=== PATIENT | male | born 1945 | race Caucasian/White ===

== ENCOUNTER 2018-10-07 16:07 | Emergency (ER) | payer OTHER ==
--- NOTE | 2018-10-07 16:26 | ED Physician Documentation ---
PD HPI SKIN - Stated complaint Stated Complaint: RASH - Chief complaint Chief Complaint: Wound - History obtained from History obtained from: Patient PD PAST MEDICAL HISTORY - Allergies Allergies/Adverse Reactions: Allergies Allergy/AdvReac Type Severity Reaction Status Date / Time No Known Drug Allergies Allergy Verified 10/07/18 16:14 Results - Vitals Vitals: Vital Signs - 24 hr 10/07/18 16:11 Temperature 36.0 C L Heart Rate 151 H Respiratory 18 Rate Blood Pressure 118/89 H O2 Saturation 100 Oxygen O2 Source Room air
--- NOTE | 2018-10-07 17:27 | ED Physician Documentation ---
PD HPI SKIN - Stated complaint Stated Complaint: RASH - Chief complaint Chief Complaint: Wound - History obtained from History obtained from: Patient, Family - History of Present Illness Timing - onset: Other (73-year-old gentleman with recent perforated diverticulitis status post lap or scopic surgery with midline IV in place getting IV antibiotics, also history of CLL presents with a slightly painful rash to the left abdominal wall. No fevers.) Review of Systems Constitutional: denies: Fever, Chills Nose: reports: Reviewed and negative Cardiac: reports: Reviewed and negative Respiratory: reports: Reviewed and negative GI: denies: Abdominal Pain, Nausea, Vomiting, Diarrhea PD PAST MEDICAL HISTORY - Past Medical History Past Medical History: Yes Other Past Medical History: diverticulitis, perforated bowel, denies other - Past Surgical History Past Surgical History: Yes - Present Medications Home Medications: Ambulatory Orders Medication Instructions Recorded Confirmed Valacyclovir HCl [Valtrex] 1,000 mg PO TID #30 tablet 10/07/18 - Allergies Allergies/Adverse Reactions: Allergies Allergy/AdvReac Type Severity Reaction Status Date / Time No Known Drug Allergies Allergy Verified 10/07/18 16:14 - Social History Does the pt smoke?: No Smoking Status: Never smoker Does the pt drink ETOH?: No Does the pt have substance abuse?: No - Immunizations Immunizations are current?: Yes PD ED PE NORMAL - Vitals Vital signs reviewed: Yes (Tachycardic) - General General: Alert and oriented X 3, No acute distress - Cardiac Cardiac: No murmur (Tachycardic, regular) - Abdomen Abdomen: Normal bowel sounds, Soft, Non tender, Other (PANCHO drain right mid abdomen, a lot of pelvic bruising. He has shingles to the left abdominal wall.) - Back Back: No CVA TTP, No spinal TTP - Neuro Neuro: Alert and oriented X 3, Normal speech - Psych Psych: Normal mood, Normal affect Results - Vitals Vitals: Vital Signs - 24 hr 10/07/18 10/07/18 10/07/18 16:11 16:39 16:41 Temperature 36.0 C L Heart Rate 151 H 124 H 133 H Respiratory 18 16 16 Rate Blood Pressure 118/89 H 132/97 H O2 Saturation 100 98 98 10/07/18 10/07/18 10/07/18 17:14 17:28 17:47 Temperature Heart Rate 137 H 138 H 141 H Respiratory 16 16 16 Rate Blood Pressure 138/104 H 154/108 H O2 Saturation 98 98 97 10/07/18 10/07/18 10/07/18 17:55 18:00 18:07 Temperature Heart Rate 139 H 139 H 130 H Respiratory 16 16 16 Rate Blood Pressure 140/110 H 146/111 H 130/106 H O2 Saturation 96 96 97 10/07/18 10/07/18 10/07/18 18:11 18:30 18:35 Temperature Heart Rate 128 H 132 H 121 H Respiratory 16 16 16 Rate Blood Pressure 133/103 H 139/104 H 118/88 H O2 Saturation 97 96 97 10/07/18 10/07/18 10/07/18 18:52 18:56 18:59 Temperature Heart Rate 123 H 71 66 Respiratory 16 16 16 Rate Blood Pressure 134/99 H 120/76 133/84 H O2 Saturation 95 95 95 Oxygen O2 Source Room air - EKG (time done) 1732 Rate: Rate (enter#) (135) Rhythm: Other (narrow complex tachy, prob junctional) QRS: Normal Ischemia: Non specific changes (mild lat STD). No: ST elevation c/w ischemia 1857 Rate: Rate (enter#) (65) Rhythm: NSR [place]: Normal Intervals: Normal [place] QRS: Normal Ischemia: Normal ST segments Computer interpretation: Agree with computer - Labs Labs: Laboratory Tests 10/07/18 10/07/18 10/07/18 17:45 17:45 17:45 WBC 49.2 H* RBC 4.68 L Hgb 15.7 Hct 49.0 MCV 104.7 H MCH 33.5 H MCHC 32.0 RDW 15.4 H Plt Count 198 MPV 9.2 Neut # (Auto) Not Reportable Lymph # (Auto) Not Reportable Nicholas # (Auto) Not Reportable Eos # (Auto) Not Reportable Baso # (Auto) Not Reportable Absolute Nucleated RBC Not Reportable Total Counted 100 Band Neuts % (Manual) 0 Abnorm Lymph % (Manual) 0 Nucleated RBC % Not Reportable Neutrophils # (Manual) 3.9 Lymphocytes # (Manual) 44.3 H Monocytes # (Manual) 0.0 Eosinophils # (Manual) 1.0 H Basophils # (Manual) 0.0 Differential Comment MANUAL DIFFERENTIAL Manual Slide Review Indicated WBC Morphology NORMAL APPEARANCE Platelet Estimate NORMAL (130-450,000) Platelet Morphology NORMAL APPEARANCE RBC Morph Micro Appear 2+ MACROCYTOSIS Sodium 141 Potassium 3.6 Chloride 101 Carbon Dioxide 26 Anion Gap 14.0 H BUN 14 Creatinine 1.0 Estimated GFR (MDRD) 73 L Glucose 112 H Lactic Acid 1.1 Calcium 9.2 Total Bilirubin 1.0 AST 50 H ALT 36 Alkaline Phosphatase 42 Total Protein 6.8 Albumin 3.6 Globulin 3.2 Albumin/Globulin Ratio 1.1 Lipase 45 PD MEDICAL DECISION MAKING - ED course ED course: 73-year-old gentleman presents with shingles with a complicated recent medical history as above. Steroids were held given the CLL is at is also noted to be tachycardic, on EKG this is a narrow complex tachycardia without P waves consistent with a junctional tachycardia. Adenosine 6 mg IV push was trialed without conversion, this was followed by metoprolol 5 mg IV. This was also ineffective but divided doses of diltiazem were curative from that perspective. Of note he says his baseline white count is in the 40s with his CLL. Departure - Departure Disposition: 01 Home, Self Care Clinical Impression: Junctional tachycardia, CLL (chronic lymphocytic leukemia) Shingles Qualifiers: Herpes zoster complications: without complications Qualified Code(s): B02.9 - Zoster without complications Condition: Good Record reviewed to determine appropriate education?: Yes Health Concerns: shingles Plan of Treatment: fixed tachycardia Care Goals: fix shingles Assessment: as above Instructions: ED Shingles Prescriptions: Valacyclovir HCl [Valtrex] 1,000 mg PO TID #30 tablet Comments: Regarding the junctional tachycardia, it abated here with the administration of IV of diltiazem. Notes that adenosine and beta-blockers were really ineffect zuhair. Mention this to your physician. Here she may want to perform an echocardiogram if you have not had one recently. Get some sort of heart rate monitor, either a blood pressure monitor with heart rate function or something like a fit bit or apple watch so that you can know if this is happening again and return if it happens again.
[2018-10-07] MEDS ORDERED: ADENOSINE 6 MG/2 ML VIAL IVP STA (17:42)
[2018-10-07] MEDS ORDERED: METOPROLOL 5 MG/5 ML VIAL IVP STA (17:53)
[2018-10-07 18:01] LABS: BASOPHILS % (AUTO) 0.1 %; EOSINOPHILS % (AUTO) 0.4 %; HGB - HEMOGLOBIN 15.7 g/dL (14.0-18.0); LYMPHOCYTES % (AUTO) 84.9 %; MEAN CORPUSCULAR HEMOGLOBIN 33.5 pg (27.0-31.0); MEAN CORPUSCULAR VOLUME 104.7 fL (80.0-94.0); MEAN PLATELET VOLUME 9.2 fL (7.4-11.4); MONOCYTES % (AUTO) 3.7 %; NEUTROPHILS % (AUTO) 10.6 %; PLT - PLATELET COUNT 198 10^3/uL (130-450); RED BLOOD COUNT 4.68 10^6/uL (4.70-6.10); RED CELL DISTRIBUTION WIDTH 15.4 % (12.0-15.0)
[2018-10-07 18:07] LABS: ALBUMIN 3.6 g/dL (3.2-5.5); ALBUMIN/GLOBULIN RATIO 1.1 (1.0-2.2); CALCIUM 9.2 mg/dL (8.5-10.3); TOTAL PROTEIN 6.8 g/dL (6.7-8.2)
[2018-10-07 18:09] LABS: WHITE BLOOD COUNT 49.2 x10^3/uL (4.8-10.8)
[2018-10-07 18:10] LABS: ABNORMAL LYMPHS % (MANUAL) 0 %; BAND NEUTROPHILS % (MANUAL) 0 %
[2018-10-07] MEDS ORDERED: diltiaZEM INJ 5 MG/ML VIAL IVP STA ×2 (18:12→18:43)
[2018-10-07 18:35] LABS: LYMPHOCYTES # (MANUAL) 44.3 10^3/uL (1.5-3.5); LYMPHOCYTES % (MANUAL) 90 %; NEUTROPHILS # (MANUAL) 3.9 10^3/uL (1.5-6.6); NEUTROPHILS % (MANUAL) 8 %
[2018-10-07 18:36] LABS: DIFFERENTIAL COMMENT MANUAL DIFFERENTIAL; PLATELET ESTIMATE, MANUAL NORMAL (130-450,000) (NORMAL); PLATELET MORPHOLOGY NORMAL APPEARANCE (NORMAL); RBC MORPHOLOGY (MULTIPLE) 2+ MACROCYTOSIS (NORMAL)
[2018-10-07 18:59] VITALS: BP 133/84
[2018-10-07] MEDS ORDERED: valACYclovir 500 MG TABLET PO STA (19:03)
== END 2018-10-07 19:17 | disposition home or self-care (01) ==
LOC: ED 16:07
DX: B02.9 Zoster without complications (principal); I47.1 Supraventricular tachycardia; C91.10 Chronic lymphocytic leukemia of B-cell type not having achieved remission; Z98.890 Other specified postprocedural states
CPT/HCPCS: 36415; 80053; 83605; 83690; 85025; 93005; 96374; 96375; 99283; 99284; A9270; J0153